=== PATIENT | female | born 1945 | race Caucasian/White ===

== ENCOUNTER 2019-06-19 13:49 | Emergency (ER) | payer MEDICARE, OTHER ==
[~2019-06-19] VITALS: Ht 152.4 cm; Wt 75.0 kg
[~2019-06-19 13:49] MED LIST: ALBU8.5H8 INH; ASPI-817 PO; CLOT30CR24 TOP; IBUP-1545 PO; METO-407 PO
[2019-06-19 13:52] VITALS: Ht 152.4 cm; Wt 75.0 kg
--- NOTE | 2019-06-19 15:04 | ERD ---
ER Documentation Chief Complaint Chief Complaint HEAD INJURY S/P GLF, NO KO HPI This is a 74-year-old female with a history of hypertension who presents to the emergency room after she slipped in the bathtub. The patient states that she slipped backwards hit her head. She denies any loss of consciousness. She den ies being on any blood thinners and came to the ER today for evaluation. She does state that she placed some ice on her head she noticed some swelling. She states ice has improved her headache and swelling and came to the ER today for evaluation. Patient is here with family members to do states she is at her baseline mental status. ROS All systems reviewed and are negative except as per history of present illness. Medications Home Meds Active Scripts Clotrimazole* (Clotrimazole* AF) 1% - 30 Gm Cream.gm., 1 APPLIC TOP BID for 7 Days, TUB Prov:BON GUILLAUME 09/11/15 Reported Medications Ibuprofen* (Ibuprofen*) 800 Mg Tab, 800 MG PO Q6H PRN for PAIN, TAB 09/11/15 Metoprolol Tartrate* (Lopressor*) 100 Mg Tablet, 100 MG PO BID, TAB 09/11/15 Aspirin* (Aspirin* EC) 81 Mg Tablet.dr, 81 MG PO DAILY, TAB 09/11/15 Albuterol Sulfate* (Proair HFA*) 8.5 Gm Hfa.aer.ad, 2 PUFF INH Q4H PRN for WHEEZING AND SOB, INH 09/11/15 Allergies Allergies: Coded Allergies: No Known Allergies (Verified Allergy, Mild, 09/11/15) PMhx/Soc History of Surgery: No Anesthesia Reaction: No Hx Neurological Disorder: No Hx Respiratory Disorders: Yes (asthma ) Hx Cardiac Disorders: Yes (HTN) Hx Psychiatric Problems: No Hx Miscellaneous Medical Probl: Yes (GERD) Hx Alcohol Use: No Hx Substance Use: No Hx Tobacco Use: No Smoking Status: Never smoker Physical Exam Vitals Vital Signs Date Temp Pulse Resp B/P (MAP) Pulse Ox O2 O2 Flow FiO2 Time Delivery Rate 06/19/19 98.1 92 17 213/98 99 13:52 (136) Physical Exam INITIAL VITAL SIGNS: Reviewed by me GENERAL: The patient is well developed and appropriate for usual state of health in no apparent distress HEENT: Scalp hematoma noted on the left parietal region, pupils equal, round, and reactive to light. EOMI. There is no scleral icterus. NECK: C-spine is soft and supple, there is no meningismus. There is no cervical lymphadenopathy. LUNGS: Clear to auscultation bilaterally. There are no rales, wheezes or rhonchi. HEART: Regular rate and rhythm, no murmurs, clicks, rubs or gallops. ABDOMEN: Soft, non-tender, non-distended. There are bowel sounds in all four quadrants. No rebound or guarding. EXTREMITIES: There is no peripheral cyanosis or edema. No focal swelling or erythema. NEUROLOGICAL: The patient moves all four extremities with 5/5 strength. Cr anial nerves II - XII are intact. Normal gait. Alert and oriented SKIN: There is no apparent rash or petechiae. HEME/LYMPHATIC: There is no evidence of excessive bruising or lymphedema. PSYCHIATRIC: The patient does not appear anxious or depressed. Procedures/MDM CT brain without: Left parietal scalp hematoma This 74-year-old female presents to the ER after slipping and falling in the bathtub. She did have a hematoma on my examination. She was alert and oriented to person place and time with no focal neurological deficits and no signs of tenderness in the neck. She did have full range of motion in the neck and was ambulating without difficulty. The patient did not endorse the use of any blood thinners. CT of the brain was obtained and shows a scalp hematoma. The patient was advised to continue taking anti-inflammatory medication and to continue icing her scalp. The patient will be discharged at this time. Departure Diagnosis: Primary Impression: Fall Additional Impressions: Scalp hematoma Closed head injury Condition: LORETTA Bass DO Jun 19, 2019 15:04
[2019-06-19] MEDS ORDERED: IBUP-1541 PO (16:18)
[2019-06-19 16:29] VITALS: BP 193/88; PULSE 78; RESP 18
== END 2019-06-19 16:31 | disposition home or self-care (01) ==
LOC: E/R 13:49
DX: S00.03XA Contusion of scalp, initial encounter (principal); I10 Essential (primary) hypertension; J45.909 Unspecified asthma, uncomplicated; W18.2XXA Fall in (into) shower or empty bathtub, initial encounter; Y92.9 Unspecified place or not applicable; Z79.82 Long term (current) use of aspirin
CPT/HCPCS: 70450